=== PATIENT | female | born 1940 | race Hispanic/Latino ===

== ENCOUNTER 2017-12-06 10:35 | Emergency (ER) | payer MEDICARE ==
[2017-12-06 10:39] VITALS: TEMP 98.6; O2SAT 98
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
[2017-12-06 11:46] LABS: BASO # 0.1 K/uL (0.0-0.2); BASO % 0.9 % (0.0-2.0); EOS # 0.2 K/uL (0.0-0.7); EOS % 2.3 % (0.0-4.0); HEMOGLOBIN 13.7 g/dL (11.0-16.0); LYMPH # 1.5 K/uL (1.0-4.3); LYMPH % 20.9 % (20.0-40.0); MEAN CELL VOLUME 87.6 fL (81.0-99.0); MEAN CORPUSCULAR HEMOGLOBIN 29.9 pg (27.0-31.0); MEAN CORPUSCULAR HGB CONC 34.1 g/dL (33.0-37.0); MEAN PLATELET VOLUME 8.5 fL (7.2-11.7); MONO # 0.5 K/uL (0.0-0.8); MONO % 7.1 % (0.0-10.0); NEUT # 4.8 K/uL (1.8-7.0); NEUT % 68.8 % (50.0-75.0); RBC 4.6 Mil/uL (3.80-5.20); RED CELL DISTRIBUTION WIDTH 13.1 % (11.5-14.5)
[2017-12-06 11:57] LABS: PROTHROMBIN TIME 11.3 SECONDS (9.7-12.2)
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
[2017-12-06 12:11] LABS: ALB/GLOB RATIO 1.3 (1.0-2.1); ALBUMIN 3.9 g/dL (3.5-5.0); ALT/SGPT 18 U/L (9-52); AST/SGOT 40 U/L (14-36); BLOOD UREA NITROGEN 16 mg/dL (7-17); CALCIUM 9.2 mg/dl (8.6-10.4); GFR AFRICAN-AMERICAN > 60; GFR NON-AFRICAN AMERICAN > 60
[2017-12-06 12:16] LABS: CK-MB 1.09 ng/mL (0.0-3.38)
[2017-12-06 12:37] VITALS: BP 143/83; PULSE 74; RESP 18
== END 2017-12-06 12:53 | disposition home or self-care (01) ==
LOC: C.ER 10:35
DX: R20.2 Paresthesia of skin (principal); I10 Essential (primary) hypertension; E11.9 Type 2 diabetes mellitus without complications

== ENCOUNTER 2018-04-27 15:22 | Emergency (ER) | payer OTHER, MEDICARE ==
[2018-04-27 15:38] VITALS: BP 186/95; PULSE 88; RESP 16; TEMP 97.3; O2SAT 97
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
--- NOTE | 2018-04-28 12:45 | CARD ---
APPROVED REPORT Date of service: 04/27/2018 EKG Measurement Heart [id number] MI [id number] [id number] <Conclusion> Normal sinus rhythm Inferior infarct, age undetermined Possible Anterior infarct, age undetermined Abnormal ECG
== END 2018-04-27 16:50 | disposition home or self-care (01) ==
LOC: C.ER 15:22
DX: S20.219A Contusion of unspecified front wall of thorax, initial encounter (principal); V49.9XXA Car occupant (driver) (passenger) injured in unspecified traffic accident, initial encounter; E11.9 Type 2 diabetes mellitus without complications; I10 Essential (primary) hypertension

== ENCOUNTER 2018-09-21 21:28 | Emergency (ER) | payer MEDICARE, OTHER ==
--- NOTE | 2018-09-21 22:09 | C.PDOC ---
History Of Present Illness 78 year old female, whose past medical history includes hypertension and diabetes, presents to the ED for evaluation of elevated blood pressure and word- finding difficulty which she has been experiencing intermittently for the past w eeks. Patient states she stopped taking her Valsartan 160mg two weeks ago because she heard somewhere on the radio that it was bad. Patient reports she has not had any difficulty with finding words over the past 24 hours, and denies any word finding difficulty currently. Patient is concerned about her elevated blood pressure, which has prompted this visit. She denies fever, chills, headache, night swears, unilateral weakness, slurred speech, or recent falls/injuries. Time Seen by Provider: 09/21/18 22:09 Chief Complaint (Nursing): Medical Clearance History Per: Patient History/Exam Limitations: no limitations Onset/Duration Of Symptoms: Other (weeks ) Current Symptoms Are (Timing): Better Additional History Per: Patient Past Medical History Reviewed: Historical Data, Nursing Documentation, Vital Signs Vital Signs: Last Vital Signs Temp 97.6 F 09/21/18 21:47 Pulse 74 09/21/18 22:08 Resp 16 09/21/18 22:08 BP 210/94 H 09/21/18 22:08 Pulse Ox 97 09/21/18 22:08 - Medical History PMH: Anxiety, Diabetes, HTN Surgical History: - [facility] Procedures APPLICATION OF SPLINT (06/27/14) Family History: States: Unknown Family Hx - Social History Hx Alcohol Use: No Hx Substance Use: No - Immunization History Hx Tetanus Toxoid Vaccination: No Hx Influenza Vaccination: Yes Hx Pneumococcal Vaccination: No Review Of Systems Constitutional: Positive for: Other (elevated blood pressure ). Negative for: Fever, Chills, Sweats Eyes: Negative for: Pain ENT: Negative for: Ear Pain Cardiovascular: Negative for: Chest Pain Respiratory: Negative for: Cough, Shortness of Breath Gastrointestinal: Negative for: Nausea, Vomiting, Abdominal Pain, Diarrhea, Con stipation, Melena Genitourinary: Negative for: Dysuria, Vaginal Discharge, Vaginal Bleeding Musculoskeletal: Negative for: Neck Pain Neurological: Negative for: Weakness, Numbness, Incoordination, Change in Speech, Confusion, Seizures, Altered Mental Status, Headache Physical Exam - Physical Exam Appears: Well, Non-toxic, No Acute Distress Skin: Normal Color, Warm, Dry Head: Atraumatic, Normacephalic Eye(s): bilateral: Normal Inspection, PERRL, EOMI Ear(s): Bilateral: Normal Oral Mucosa: Moist Neck: Normal, Normal ROM, Supple, Other (no meningeal signs ) Chest: Symmetrical, No Deformity, No Tenderness Cardiovascular: Rhythm Regular, No Murmur Respiratory: Normal Breath Sounds, No Rales, No Rhonchi, No Wheezing Gastrointestinal/Abdominal: Normal Exam, Soft, No Tenderness, No Mass Back: Normal Inspection, No CVA Tenderness, No Vertebral Tenderness Extremity: Normal ROM, Capillary Refill (less than 2 seconds ) Extremity: Bilateral: Atraumatic Neurological/Psych: Oriented x3, Normal Speech, Normal Cognition, Normal Cranial Nerves, No Cerebellar Signs, Normal Motor, Normal Sensation, No Slow To Respond With Command, No Inappropriate Response To Command, No Expressive Aphasia, No Dysarthria Gait: Steady Other Neurological Findings: No Facial Palsy, No Tongue Deviation Extremity: Right: No Drift, Left: No Drift ED Course And Treatment - Laboratory Results Result Diagrams: 09/21/18 22:39 09/21/18 22:39 O2 Sat by Pulse Oximetry: 97 (on RA) Pulse Ox Interpretation: Normal Medical Decision Making Medical Decision Makin yr old female p/w difficulty word finding since she has stopped taking one of her BP medications. Likely elevated pressures causing stroke like symptoms. Given she is asymptomatic at this time and has been asymtompatic over the past 24 hours, no indication for code stroke. On exam, pt denies any difficulty with word finding and has a normal neuro exam. Per family bedside pt is currently at baseline and has been at baseline over the past 24 hours. Differential diagnoses include but are not limited to: hypertensive urgency Progress: Bloodwork and CT Head ordered and reviewed. Patient endorsed to take her own medication of Valsartan 160mg EK, nsr, no stemi 1233 5 of labetalol given BP 171/[address] unremarkable Pt remains asymptomatic NEuro exam remains unremarkable. endorsed to pt to continue taking her BP medications including her losartan (unless there is an allergic reaction) and to followup with PMD + NEuro she is agreeable to plan Disposition - Disposition Referrals: Alfredo Peña MD [Staff Provider] - Kwan Dick MD [Staff Provider] - [facility] [Outside] [facility] [Outside] [facility] [Outside] Disposition: HOME/ ROUTINE Disposition Time: 00:36 Condition: GOOD Additional Instructions: CONTINUE TAKING YOUR LOSARTAN DIRECTED UNLESS YOU HAVE AN ALLERGIC REACTION TO IT. SEE YOUR PRIMARY CARE DOCTOR AND A NEUROLOGIST SOON POSSIBLE Instructions: High Blood Pressure (DC) Forms: [facility] (Citizen Of [place]) - Clinical Impression Clinical Impression: Hypertensive urgency - Scribe Statement The provider has reviewed the documentation as recorded by the Scribe (Scarlett Harvey) Provider Attestation: All medical record entries made by the Scribe were at my direction and personally dictated by me. I have reviewed the chart and agree that the record accurately reflects my personal performance of the history, physical exam, medical decision making, and the department course for this patient. I have also personally directed, reviewed, and agree with the discharge instructions and disposition.
[2018-09-21] MEDS ORDERED: Patient's Own Medication - Tablet/Capusle PO ONE (22:25)
[2018-09-21 22:42] LABS: BASO % 0.7 % (0.0-2.0); EOS # 0.2 K/uL (0.0-0.7); EOS % 2.8 % (0.0-4.0); HEMOGLOBIN 13.9 g/dL (11.0-16.0); LYMPH # 1.4 K/uL (1.0-4.3); LYMPH % 19.6 % (20.0-40.0); MEAN CORPUSCULAR HEMOGLOBIN 29.4 pg (27.0-31.0); MEAN CORPUSCULAR HGB CONC 33.4 g/dL (33.0-37.0); MONO # 0.5 K/uL (0.0-0.8); MONO % 7.2 % (0.0-10.0); NEUT # 4.9 K/uL (1.8-7.0); NEUT % 69.7 % (50.0-75.0); RBC 4.72 Mil/uL (3.80-5.20); RED CELL DISTRIBUTION WIDTH 13.3 % (11.5-14.5)
[2018-09-21 22:49] LABS: INR 1.1; PROTHROMBIN TIME 11.7 SECONDS (9.7-12.2)
[2018-09-21 22:54] LABS: ALB/GLOB RATIO 1.6 (1.0-2.1); ALBUMIN 4.4 g/dL (3.5-5.0); BLOOD UREA NITROGEN 21 mg/dL (7-17); GFR NON-AFRICAN AMERICAN > 60
[2018-09-21 23:05] LABS: ALT/SGPT 23 U/L (9-52); AST/SGOT 39 U/L (14-36)
[2018-09-22] MEDS ORDERED: Labetalol 25mg/5ml Syringe IVP STA (00:23)
[2018-09-22 01:18] VITALS: BP 165/81; PULSE 70; RESP 16; TEMP 97.9
--- NOTE | 2018-09-22 09:21 | CARD ---
APPROVED REPORT Date of service: 09/21/2018 EKG Measurement Heart [id number] NH [id number] [id number] <Conclusion> Normal sinus rhythm Inferior infarct, age undetermined Abnormal ECG
--- NOTE | 2018-09-22 10:32 | CT ---
Date of service: 09/21/2018 PROCEDURE: CT HEAD WITHOUT CONTRAST. HISTORY: htn, ams earlier COMPARISON: Non contrast head CT 12/06/17 TECHNIQUE: Axial computed tomography images were obtained through the head/brain without intravenous contrast. Radiation dose: Total exam DLP = 1022.82 mGy-cm. This CT exam was performed using one or more of the following dose reduction techniques: Automated exposure control, adjustment of the mA and/or kV according to patient size, and/or use of iterative reconstruction technique. FINDINGS: HEMORRHAGE: No intracranial hemorrhage. BRAIN: Diffuse atrophy with prominence of the ventricles and sulci noted. No mass effect or edema. Intracranial atherosclerosis. Scattered periventricular and subcortical white matter hypodensities, which are nonspecific, but often seen with chronic microvascular ischemic disease. Small left ganglia lacunar type infarct. Please note that MRI with diffusion imaging is more sensitive in the detection of acute ischemic event. VENTRICLES: No hydrocephalus. CALVARIUM: Unremarkable. PARANASAL SINUSES: Unremarkable as visualized. No significant inflammatory changes. MASTOID AIR CELLS: Unremarkable as visualized. No inflammatory changes. OTHER FINDINGS: None. IMPRESSION: Nonspecific white matter changes. Generalized atrophy. Small left basal ganglia lacunar type infarct. Preliminary impression was provided by [place].
[2018-09-23 21:17] VITALS: O2SAT 97
== END 2018-09-22 01:18 | disposition home or self-care (01) ==
LOC: C.ER 21:28
DX: I10 Essential (primary) hypertension (principal); E11.9 Type 2 diabetes mellitus without complications; F41.9 Anxiety disorder, unspecified

== ENCOUNTER 2018-09-22 15:53 | Observation (INO) | payer MEDICARE, OTHER ==
--- NOTE | 2018-09-22 16:17 | C.PDOC ---
History Of Present Illness Patient sent from PMD's office for evaluation of possible TIA/CVA. As per daughter, patient was seen in the ED yesterday for similar complaints, was hypertensive and having difficulty finding words prior to ED arrival. Blood work and CT scan were done yesterday, and patient was discharged. Daughter states they her mother does not seem to be herself, and that since speaking to her last night she has seemed mildly confused and having some difficulty getting the correct words out. Daughter/patient deny visual changesm facial droop, slurred speech, extremity weakness, sensory changes, visual changes. PMHx: HTN, DM II, anxiety, TIA Time Seen by Provider: 09/22/18 16:02 Chief Complaint (Nursing): Medical Clearance History Per: Patient, Family (daughter at bedside ) History/Exam Limitations: clinical condition Onset/Duration Of Symptoms: Days (since last night ) Current Symptoms Are (Timing): Still Present Severity: Mild Past Medical History Reviewed: Historical Data, Nursing Documentation, Vital Signs Vital Signs: Last Vital Signs Temp 98 F 09/22/18 16:03 Pulse 88 09/22/18 16:03 Resp 16 09/22/18 16:03 BP 176/98 H 09/22/18 16:03 Pulse Ox 96 09/22/18 16:03 - Medical History PMH: Anxiety, Diabetes, HTN Surgical History: - [facility] Procedures APPLICATION OF SPLINT (06/27/14) Family History: States: No Known Family Hx - Social History Hx Alcohol Use: No Hx Substance Use: No - Immunization History Hx Tetanus Toxoid Vaccination: No Hx Influenza Vaccination: Yes Hx Pneumococcal Vaccination: No Review Of Systems Constitutional: Negative for: Fever, Chills Cardiovascular: Negative for: Chest Pain, Palpitations Respiratory: Negative for: Cough, Shortness of Breath Gastrointestinal: Negative for: Nausea, Vomiting, Abdominal Pain, Diarrhea Neurological: Positive for: Change in Speech (mild expressive aphasia), Confusion. Negative for: Weakness, Numbness, Incoordination, Seizures, Altered Mental Status, Headache, Dizziness Physical Exam - Physical Exam Appears: Well, Non-toxic, No Acute Distress Skin: Normal Color, Warm, Dry Head: Atraumatic, Normacephalic Eye(s): bilateral: Normal Inspection, PERRL, EOMI Oral Mucosa: Moist Cardiovascular: Rhythm Regular Respiratory: Normal Breath Sounds, No Rales, No Rhonchi, No Wheezing Gastrointestinal/Abdominal: Normal Exam, Bowel Sounds, Soft, No Tenderness Neurological/Psych: No Oriented x3 (AAOx2 - disoriented to time), Normal Speech, Normal Cognition, Normal Cranial Nerves, No Cerebellar Signs, Normal Motor, Normal Sensation, Expressive Aphasia (mild expressive aphasia), No Receptive Aphasia, No Dysarthria, No Romberg ED Course And Treatment - Laboratory Results Result Diagrams: 09/22/18 16:25 09/22/18 16:25 O2 Sat by Pulse Oximetry: 96 (ra) Pulse Ox Interpretation: Normal - CT Scan/US ct head (yesterday) Other Rad Studies (CT/US): Read By Radiologist, Radiology Report Reviewed CT/US Interpretation: Accession No. : [id number]. Patient Name / ID : TIA MARINA / [id number]. Exam Date : 09/21/2018 22:47:41 ( Approved ). Study Comment : Sex / Age : F / 78Y. Creator : Talisha Carrillo MD. Dictator : aTlisha Carrillo MD. Dormitory Maid : Jogger Operator : Talisha Carrillo MD. Approver2 : Report Date : 09/22/2018 10:28:54. My Comment : . Date of service: 09/21/2018. PROCEDURE: CT HEAD WITHOUT CONTRAST. HISTORY: htn, ams earlier. COMPARISON: Non contrast head CT 12/06/17. TECHNIQUE: Axial computed tomography images were obtained through the head/brain without intravenous contrast. Radiation dose: Total exam DLP = 1022.82 mGy-cm. This CT exam was performed using one or more of the following dose reduction techniques: Automated exposure control, adjustment of the mA and/or kV according to patient size, and/or use of iterative reconstruction technique. FINDINGS: HEMORRHAGE: No intracranial hemorrhage. BRAIN: Diffuse atrophy with prominence of the ventricles and sulci noted. No mass effect or edema. Intracranial atherosclerosis. Scattered periventricular and subcortical white matter hypodensities, which are nonspecific, but often seen with chronic microvascular ischemic disease. Small left ganglia lacunar type infarct. Please note that MRI with diffusion imaging is more sensitive in the detection of acute ischemic event. VENTRICLES: No hydrocephalus. CALVARIUM: Unremarkable. PARANASAL SINUSES: Unremarkable as visualized. No significant inflammatory changes. MASTOID AIR CELLS: Unremarkable as visualized. No inflammatory changes. OTHER FINDINGS: None. IMPRESSION: Nonspecific white matter changes. Generalized atrophy. Small left basal ganglia lacunar type infarct. Preliminary impression was provided by SVITLANA Boothe. Progress Note: Blood work, EKG, MRI brain ordered. 5:00pm- After extensive discussion, patient refuses MRI of brain, states she is too anxious and claustrophic. Patient offered Ativan however still refuses. 6:00pm- Discussed patient with manager inventory control neurology Dr. Dick, recommends PO Plavix 300mg and EEG - ordered. NIHSS Stroke Scale - Date/Time Evaluation Performed Date Performed: 09/22/18 Time Performed: 16:00 When Was NIHSS Performed: Baseline - How Severe is the Stroke Level of Consciousness: 0=Alert LOC to Questions: 0=Both comments correct LOC to commands: 0=Obeys both correctly Best Gaze: 0=Normal Visual: 0=No visual loss Facial: 0=Normal Motor Arm - Left: 0=No drift Motor Arm - Right: 0=No drift Motor Leg - Left: 0=No drift Motor Leg - Right: 0=No drift Limb Ataxia: 0=Absent Sensory: 0=Normal Best Language: 1=Mild to moderate aphasia Dysarthia: 0=Normal articulation Extinction & Inattention (Neglect): 0=Normal, no object Score: 1 rTPA Inclusion/Exclusion - Refusal of Treatment Patient Refused Treatment: No Disposition - Disposition
[2018-09-22 16:34] LABS: BASO # 0.1 K/uL (0.0-0.2); BASO % 0.8 % (0.0-2.0); EOS # 0.1 K/uL (0.0-0.7); EOS % 1.9 % (0.0-4.0); HEMOGLOBIN 13.8 g/dL (11.0-16.0); MEAN CELL VOLUME 88.1 fL (81.0-99.0); MEAN CORPUSCULAR HEMOGLOBIN 29.4 pg (27.0-31.0); MEAN CORPUSCULAR HGB CONC 33.4 g/dL (33.0-37.0); MEAN PLATELET VOLUME 8.4 fL (7.2-11.7); MONO # 0.7 K/uL (0.0-0.8); MONO % 8.8 % (0.0-10.0); NEUT # 4.6 K/uL (1.8-7.0); NEUT % 61.5 % (50.0-75.0); RBC 4.7 Mil/uL (3.80-5.20); RED CELL DISTRIBUTION WIDTH 12.8 % (11.5-14.5); WHITE BLOOD COUNT 7.5 K/uL (4.8-10.8)
[2018-09-22 16:43] LABS: INR 1.1; PROTHROMBIN TIME 12.2 SECONDS (9.7-12.2)
[2018-09-22 16:45] LABS: ALB/GLOB RATIO 1.6 (1.0-2.1); ALBUMIN 4.6 g/dL (3.5-5.0); ALT/SGPT 18 U/L (9-52); AST/SGOT 65 U/L (14-36); BLOOD UREA NITROGEN 16 mg/dL (7-17); CALCIUM 10.1 mg/dl (8.6-10.4); GFR NON-AFRICAN AMERICAN > 60
[2018-09-22 16:56] LABS: B-TYPE NATRIURETIC PEPTIDE 178 pg/mL (0-900); CK-MB 0.76 ng/mL (0.0-3.38)
[2018-09-22 20:48] LABS: HDL CHOLESTEROL 58 mg/dL (30-70)
[2018-09-22 20:59] LABS: LDL CHOLESTEROL 125 mg/dL (0-129)
[2018-09-22 21:51] LABS: FOLATE > 20.0 ng/mL
[2018-09-22 22:55] LABS: BLOOD UREA NITROGEN 15 mg/dL (7-17); CALCIUM 10.4 mg/dl (8.6-10.4); GFR NON-AFRICAN AMERICAN > 60
[2018-09-23 01:11] LABS: SQUAMOUS EPITHIAL 3 /hpf (0-5); URINE BACTERIA RARE (<OCC); URINE BILIRUBIN NEGATIVE (NEGATIVE); URINE BLOOD NEGATIVE (NEGATIVE); URINE CLARITY Hazy (Clear); URINE COLOR Yellow (YELLOW); URINE GLUCOSE (UA) NORMAL (Normal); URINE HYALINE CAST 0-2 /lpf (0-2); URINE LEUKOCYTE ESTERASE 1+ Leu/uL (Negative); URINE PROTEIN 1+ mg/dL (NEGATIVE); URINE UROBILINOGEN NORMAL mg/dL (0.2-1.0)
[2018-09-23] MEDS: Enoxaparin 40 mg Syringe SC SCH (10:54)
--- NOTE | 2018-09-23 11:20 | CP.PCM.CON ---
History of Present Illness - History of Present Illness History of Present Illness: PGY-1 Neuro Consult Note for Dr. Dick Patient is a 78 year old female with a PMHx diabetes mellitus 2, hypertension, anxiety admitted for AMS. She was seen in the [facility] ED on 09/21 for hypertensive urgency. She states that when she gets anxious, her throat will close up and she won't be able to speak. The sensation usually dissipates on it's own after the stressor goes away, however she remained aphasic through the night and came back to the ED for the same symptom. She regained her voice shortly after being admitted. She knows what she wants to say, but can't get the words out. Occasionally, she has trouble with word finding and recall. She does admit to not taking her medication as prescribed. She forgets about twice a week to take her medications. Her daughter at bedside also states that she has been less cautious than her usual self, forgetting that the lights or stove are turned on when leaving a room. Patient currently has no physical complaints. Denies headache, dizziness, n/v, blurry vision, tinnitus, weakness. PMH: HTN, DM2, anxiety, urinary incontinence Med: ASA 81mg po daily, Vascepa 2gm po BID, metformin 1000mg po BID, Valsartan 160mg po daily, Claritin 10mg po daily All: Codeine, morphine, Sulfa - angioedema SxHx: R nephrectomy, colon polyp removal, c/section FamHx: father - CAD, mother - colon CA SocHx: lives alone at home. 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 absent: Chills, Fever, Headache, Weakness - EENT Eyes: absent: Diplopia, Discharge, Itchy Eyes, Pain, Loss of Vision Ears: Dizziness. absent: Decreased Hearing, Tinnitus - Neurological Neurological: Confusion, Disequilibrium, Dizziness. absent: Abnormal Gait, Abnormal Hearing, Abnormal Movements, Abnormal Speech, Behavioral Changes, Burning Sensations, Convulsions, Numbness, Focal Weakness, Frequent Falls, Headaches, Restless Legs, Tingling, Tremor, Vertigo, Weakness Past Patient History - Past Social History Smoking Status: Never Smoked - CARDIAC Hx Cardiac Disorders: Yes Hx Hypertension: Yes - PULMONARY Hx Respiratory Disorders: No - NEUROLOGICAL Hx Neurological Disorder: Yes HX Cerebrovascular Accident: Yes (mini stroke 2 years ago) Hx Vertigo: Yes - HEENT Hx HEENT Problems: Yes Other/Comment: wears eyeglasses for reading - RENAL Hx Chronic Kidney Disease: No - ENDOCRINE/METABOLIC Hx Endocrine Disorders: Yes Hx Diabetes Mellitus Type 2: Yes - HEMATOLOGICAL/ONCOLOGICAL Hx Blood Disorders: No - INTEGUMENTARY Hx Dermatological Problems: No - MUSCULOSKELETAL/RHEUMATOLOGICAL Hx Musculoskeletal Disorders: No Hx Falls: No - GASTROINTESTINAL Hx Gastrointestinal Disorders: No - GENITOURINARY/GYNECOLOGICAL Hx Genitourinary Disorders: No - PSYCHIATRIC Hx Psychophysiologic Disorder: Yes Hx Anxiety: Yes - SURGICAL HISTORY Hx Surgeries: Yes Other/Comment: Rt. nephrectomy - ANESTHESIA Hx Anesthesia: Yes Hx Anesthesia Reactions: No Hx Malignant Hyperthermia: No Has any member of the family had a problem w/ anesthesia?: No Meds Allergies/Adverse Reactions: Allergies Allergy/AdvReac Type Severity Reaction Status Date / Time codeine Allergy RASH Verified 09/22/18 16:04 morphine Allergy RASH Verified 09/22/18 16:04 Sulfa (Sulfonamide Allergy RASH Verified 09/22/18 16:04 Antibiotics) - Medications Medications: Current Medications Aspirin (Aspirin Chewable) 81 mg PO DAILY [facility] Last Admin: 09/23/18 10:51 Dose: 81 mg Carvedilol (Coreg) 12.5 mg PO DAILY [facility] Last Admin: 09/23/18 10:51 Dose: 12.5 mg Enoxaparin Sodium (Lovenox) 40 mg SC DAILY [facility] Last Admin: 09/23/18 10:54 Dose: 40 mg Ceftriaxone Sodium 1 gm/ (Sodium Chloride) 100 mls @ 100 mls/hr IVPB DAILY [facility]; Protocol Last Admin: 09/23/18 10:54 Dose: 100 mls/hr Losartan Potassium (Cozaar) 100 mg PO DAILY [facility] Last Admin: 09/23/18 10:54 Dose: 100 mg Metformin HCl (Glucophage) 500 mg PO DAILY [facility] Last Admin: 09/23/18 10:51 Dose: 500 mg Physical Exam - Constitutional Appears: Non-toxic, No Acute Distress - Head Exam Head Exam: ATRAUMATIC, NORMOCEPHALIC - Eye Exam Eye Exam: EOMI, Normal appearance, PERRL Pupil Exam: NORMAL ACCOMODATION - ENT Exam ENT Exam: Mucous Membranes Moist - Neck Exam Neck exam: Positive for: Full Rom, Normal Inspection, Tenderness (paraspinal) - Respiratory Exam Respiratory Exam: Clear to Auscultation Bilateral, NORMAL BREATHING PATTERN. absent: Rales, Rhonchi, Wheezes - Cardiovascular Exam Cardiovascular Exam: REGULAR RHYTHM, +S1, +S2 - GI/Abdominal Exam GI & Abdominal Exam: Normal Bowel Sounds, Soft. absent: Tenderness Additional comments: morbidly obese - Extremities Exam Extremities exam: Negative for: calf tenderness, pedal edema - Back Exam Additional comments: kyphosis - Neurological Exam Neurological exam: Alert, CN II-XII Intact, Oriented x3 Additional comments: poor recall and attention on MME failed serial 7's - Expanded Neurological Exam Expanded Patient oriented to: person, place, time Speech: Expressive Aphasia, Fluid Speech Cranial nerves: EOM's Intact: Normal, Facial Sensation: Normal Cerebellar Function: Finger to Nose: Normal Upper motor neuron: Pronator Drift: Normal - Psychiatric Exam Psychiatric exam: Anxious, Normal Affect, Normal Mood - Skin Skin Exam: Dry, Normal Color, Warm Results - Vital Signs Recent Vital Signs: Last Vital Signs Temp 98.6 F 09/23/18 04:00 Pulse 85 09/23/18 04:00 Resp 14 09/23/18 04:00 BP 153/81 H 09/23/18 10:51 Pulse Ox 98 09/23/18 04:00 - Labs Result Diagrams: 09/22/18 16:25 09/22/18 22:41 Labs: Laboratory Results - last 24 hr 09/22/18 09/22/18 09/22/18 15:00 15:59 16:25 WBC 7.5 RBC 4.70 Hgb 13.8 Hct 41.4 MCV 88.1 MCH 29.4 MCHC 33.4 RDW 12.8 Plt Count 204 MPV 8.4 Neut % (Auto) 61.5 Lymph % (Auto) 27.0 Cavalier % (Auto) 8.8 Eos % (Auto) 1.9 Baso % (Auto) 0.8 Neut # (Auto) 4.6 Lymph # (Auto) 2.0 Cavalier # (Auto) 0.7 Eos # (Auto) 0.1 Baso # (Auto) 0.1 ESR PT INR APTT Sodium Potassium Chloride Carbon Dioxide Anion Gap BUN Creatinine Est GFR ( Amer) Est GFR (Non-Af Amer) POC Glucose (mg/dL) 129 H Random Glucose Hemoglobin A1c Calcium Total Bilirubin AST ALT Alkaline Phosphatase Ammonia 20 Total Creatine Kinase CK-MB (Mass) Troponin I NT-Pro-B Natriuret Pep Total Protein Albumin Globulin Albumin/Globulin Ratio Triglycerides Cholesterol LDL Cholesterol Direct HDL Cholesterol Vitamin B12 Folate Free T4 Total T3 TSH 3rd Generation Urine Color Urine Clarity Urine pH Ur Specific [place] Urine Protein Urine Glucose (UA) Urine Ketones Urine Blood Urine Nitrate Urine Bilirubin Urine Urobilinogen Ur Leukocyte Esterase Urine WBC (Auto) Urine RBC (Auto) Ur Squamous Epith Cells Urine Bacteria Hyaline Casts 09/22/18 09/22/18 09/22/18 16:25 16:25 20:21 WBC RBC Hgb Hct MCV MCH MCHC RDW Plt Count MPV Neut % (Auto) Lymph % (Auto) [place] % (Auto) Eos % (Auto) Baso % (Auto) Neut # (Auto) Lymph # (Auto) [place] # (Auto) Eos # (Auto) Baso # (Auto) ESR PT 12.2 INR 1.1 APTT 33 Sodium 132 Potassium 5.8 H 4.1 Chloride 102 Carbon Dioxide 27 Anion Gap 9 L BUN 16 Creatinine 0.8 Est GFR ( Amer) > 60 Est GFR (Non-Af Amer) > 60 POC Glucose (mg/dL) Random Glucose 124 H D Hemoglobin A1c Calcium 10.1 Total Bilirubin 1.5 H AST 65 H D ALT 18 Alkaline Phosphatase 75 Ammonia Total Creatine Kinase 84 CK-MB (Mass) 0.76 Troponin I 0.0150 NT-Pro-B Natriuret Pep 178 Total Protein 7.5 Albumin 4.6 Globulin 2.9 Albumin/Globulin Ratio 1.6 Triglycerides Cholesterol LDL Cholesterol Direct HDL Cholesterol Vitamin B12 Folate Free T4 Total T3 TSH 3rd Generation Urine Color Urine Clarity Urine pH Ur Specific [place] Urine Protein Urine Glucose (UA) Urine Ketones Urine Blood Urine Nitrate Urine Bilirubin Urine Urobilinogen Ur Leukocyte Esterase Urine WBC (Auto) Urine RBC (Auto) Ur Squamous Epith Cells Urine Bacteria Hyaline Casts 09/22/18 09/22/18 09/22/18 20:23 22:33 22:33 WBC RBC Hgb Hct MCV MCH MCHC RDW Plt Count MPV Neut % (Auto) Lymph % (Auto) [place] % (Auto) Eos % (Auto) Baso % (Auto) Neut # (Auto) Lymph # (Auto) [place] # (Auto) Eos # (Auto) Baso # (Auto) ESR 14 PT INR APTT Sodium Potassium Chloride Carbon Dioxide Anion Gap BUN Creatinine Est GFR ( Amer) Est GFR (Non-Af Amer) POC Glucose (mg/dL) Random Glucose Hemoglobin A1c 7.0 H Calcium Total Bilirubin AST ALT Alkaline Phosphatase Ammonia Total Creatine Kinase CK-MB (Mass) Troponin I NT-Pro-B Natriuret Pep Total Protein Albumin Globulin Albumin/Globulin Ratio Triglycerides 135 Cholesterol 202 H LDL Cholesterol Direct 125 HDL Cholesterol 58 Vitamin B12 470 Folate > 20.0 Free T4 Total T3 TSH 3rd Generation 0.40 L Urine Color Urine Clarity Urine pH Ur Specific [place] Urine Protein Urine Glucose (UA) Urine Ketones Urine Blood Urine Nitrate Urine Bilirubin Urine Urobilinogen Ur Leukocyte Esterase Urine WBC (Auto) Urine RBC (Auto) Ur Squamous Epith Cells Urine Bacteria Hyaline Casts 09/22/18 09/23/18 09/23/18 22:41 00:10 07:02 WBC RBC Hgb Hct MCV MCH MCHC RDW Plt Count MPV Neut % (Auto) Lymph % (Auto) [place] % (Auto) Eos % (Auto) Baso % (Auto) Neut # (Auto) Lymph # (Auto) [place] # (Auto) Eos # (Auto) Baso # (Auto) ESR PT INR APTT Sodium 135 Potassium 4.2 Chloride 103 Carbon Dioxide 23 Anion Gap 13 BUN 15 Creatinine 0.8 Est GFR ( Amer) > 60 Est GFR (Non-Af Amer) > 60 POC Glucose (mg/dL) Random Glucose 142 H Hemoglobin A1c Calcium 10.4 Total Bilirubin AST ALT Alkaline Phosphatase Ammonia Total Creatine Kinase CK-MB (Mass) Troponin I NT-Pro-B Natriuret Pep Total Protein Albumin Globulin Albumin/Globulin Ratio Triglycerides Cholesterol LDL Cholesterol Direct HDL Cholesterol Vitamin B12 Folate Free T4 1.39 Total T3 TSH 3rd Generation Urine Color Yellow Urine Clarity Hazy Urine pH 6.0 Ur Specific [place] 1.008 Urine Protein 1+ H Urine Glucose (UA) Normal Urine Ketones Trace Urine Blood Negative Urine Nitrate Negative Urine Bilirubin Negative Urine Urobilinogen Normal Ur Leukocyte Esterase 1+ H Urine WBC (Auto) 26 H Urine RBC (Auto) 3 Ur Squamous Epith Cells 3 Urine Bacteria Rare Hyaline Casts 0-2 09/23/18 07:02 WBC RBC Hgb Hct MCV MCH MCHC RDW Plt Count MPV Neut % (Auto) Lymph % (Auto) [place] % (Auto) Eos % (Auto) Baso % (Auto) Neut # (Auto) Lymph # (Auto) [place] # (Auto) Eos # (Auto) Baso # (Auto) ESR PT INR APTT Sodium Potassium Chloride Carbon Dioxide Anion Gap BUN Creatinine Est GFR ( Amer) Est GFR (Non-Af Amer) POC Glucose (mg/dL) Random Glucose Hemoglobin A1c Calcium Total Bilirubin AST ALT Alkaline Phosphatase Ammonia Total Creatine Kinase CK-MB (Mass) Troponin I NT-Pro-B Natriuret Pep Total Protein Albumin Globulin Albumin/Globulin Ratio Triglycerides Cholesterol LDL Cholesterol Direct HDL Cholesterol Vitamin B12 Folate Free T4 Total T3 1.55 TSH 3rd Generation Urine Color Urine Clarity Urine pH Ur Specific [place] Urine Protein Urine Glucose (UA) Urine Ketones Urine Blood Urine Nitrate Urine Bilirubin Urine Urobilinogen Ur Leukocyte Esterase Urine WBC (Auto) Urine RBC (Auto) Ur Squamous Epith Cells Urine Bacteria Hyaline Casts Assessment & Plan - Assessment and Plan (Free Text) Assessment: 78yo F PMH diabetes mellitus 2, hypertension, anxiety admitted for AMS. Plan: Aphasia Primary Progressive Aphasia vs. TIA CT Head without contrast (09/21): Nonspecific white matter changes. Generalized atrophy Small left basal ganglia lacunar infarct. Carotid Dopplers (09/22): prelim negative EEG (09/23): pending read - f/u MRI Brain without contrast - f/u MRA Head without contrast - f/u MRA Neck without contrast - Ativan 1mg IVP once prn on for claustrophobia prior to imaging - patient is neurologically stable - patient states that she is very wary of MRI/MRA. The importance was impressed upon her and she said she is willing to try while hospitalized. If she is unable to tolerate closed MRI, option for open MRI after discharge was explained. d/w Dr. Mayelin Kinsey PGY-1 - Date & Time Date: 09/23/18 Time: 12:30
--- NOTE | 2018-09-23 11:36 | US ---
HISTORY: R/O GB STONES COMPARISON: None available. TECHNIQUE: Sonographic evaluation of the abdomen. FINDINGS: LIVER: Measures 15.6 cm in sagittal dimension. Echogenic liver may be seen in setting of hepatic parenchymal disease or fatty infiltration. No focal hepatic mass identified. The main portal vein appears patent with normal directional flow. No intrahepatic bile duct dilatation. GALLBLADDER: No gallstones. No gallbladder wall thickening. Negative sonographic Miramontes's sign as assessed by the disability attorney. COMMON BILE DUCT: Measures 4 mm. PANCREAS: Not well visualized. RIGHT KIDNEY: Not visualized, by history surgically resected. LEFT KIDNEY: Measures 10.9 x 6.1 x 4.9cm. No obstructing calculus or hydronephrosis identified. 6.5 x 5.9 x 6.7 cm lower pole cyst. No obstructing calculus or hydronephrosis. SPLEEN: Measures approximately 10.6 cm. AORTA: Limited views appear unremarkable. IVC: Limited views appear unremarkable. OTHER FINDINGS: None. IMPRESSION: Echogenic liver may be seen in setting of hepatic parenchymal disease or fatty infiltration. 6.5 x 5.9 x 6.7 cm left lower pole renal cyst. The right kidney is not identified, by history surgically resected.
--- NOTE | 2018-09-23 12:07 | CP.PCM.HP ---
History of Present Illness - History of Present Illness History of Present Illness: Patient presented in ER with new mental status changes, confuse, she had problem to "found words". Patient for evaluation of CVA vs TIA. She presented with liver function test abnormality and possible UTI. Since she was started on iv antibx her mental status improving well. Present on Admission - Present on Admission Any Indicators Present on Admission: No Review of Systems - Constitutional Constitutional: Fatigue, Weakness - EENT Eyes: As Per HPI - Cardiovascular Cardiovascular: As Per HPI - Respiratory Respiratory: As Per HPI - Gastrointestinal Gastrointestinal: As Per HPI - Musculoskeletal Musculoskeletal: As Per HPI - Neurological Neurological: Confusion - Psychiatric Psychiatric: As Per HPI - Endocrine Endocrine: As Per HPI Past Patient History - Past Social History Smoking Status: Never Smoked - CARDIAC Hx Cardiac Disorders: Yes Hx Hypertension: Yes - PULMONARY Hx Respiratory Disorders: No - NEUROLOGICAL Hx Neurological Disorder: Yes HX Cerebrovascular Accident: Yes (mini stroke 2 years ago) Hx Vertigo: Yes - HEENT Hx HEENT Problems: Yes Other/Comment: wears eyeglasses for reading - RENAL Hx Chronic Kidney Disease: No - ENDOCRINE/METABOLIC Hx Endocrine Disorders: Yes Hx Diabetes Mellitus Type 2: Yes - HEMATOLOGICAL/ONCOLOGICAL Hx Blood Disorders: No - INTEGUMENTARY Hx Dermatological Problems: No - MUSCULOSKELETAL/RHEUMATOLOGICAL Hx Musculoskeletal Disorders: No Hx Falls: No - GASTROINTESTINAL Hx Gastrointestinal Disorders: No - GENITOURINARY/GYNECOLOGICAL Hx Genitourinary Disorders: No - PSYCHIATRIC Hx Psychophysiologic Disorder: Yes Hx Anxiety: Yes - SURGICAL HISTORY Hx Surgeries: Yes Other/Comment: Rt. nephrectomy - ANESTHESIA Hx Anesthesia: Yes Hx Anesthesia Reactions: No Hx Malignant Hyperthermia: No Has any member of the family had a problem w/ anesthesia?: No Meds Allergies/Adverse Reactions: Allergies Allergy/AdvReac Type Severity Reaction Status Date / Time codeine Allergy RASH Verified 09/22/18 16:04 morphine Allergy RASH Verified 09/22/18 16:04 Sulfa (Sulfonamide Allergy RASH Verified 09/22/18 16:04 Antibiotics) Physical Exam - Constitutional Appears: Non-toxic, Chronically Ill - Head Exam Head Exam: ATRAUMATIC, NORMAL INSPECTION, NORMOCEPHALIC - Eye Exam Eye Exam: Normal appearance - ENT Exam ENT Exam: Mucous Membranes Moist - Neck Exam Neck exam: Positive for: Normal Inspection - Respiratory Exam Respiratory Exam: Decreased Breath Sounds - Cardiovascular Exam Cardiovascular Exam: REGULAR RHYTHM, +S1, +S2 - GI/Abdominal Exam GI & Abdominal Exam: Normal Bowel Sounds - Extremities Exam Extremities exam: Positive for: normal inspection - Neurological Exam Neurological exam: Alert, CN II-XII Intact Additional comments: confuse. - Psychiatric Exam Psychiatric exam: Flat Affect - Skin Skin Exam: Pallor Results - Vital Signs Recent Vital Signs: Last Vital Signs Temp 98.6 F 09/23/18 04:00 Pulse 85 09/23/18 04:00 Resp 14 09/23/18 04:00 BP 153/81 H 09/23/18 10:51 Pulse Ox 98 09/23/18 04:00 - Labs Result Diagrams: 09/22/18 16:25 09/22/18 22:41 Labs: Laboratory Results - last 24 hr 09/22/18 09/22/18 09/22/18 15:00 15:59 16:25 WBC 7.5 RBC 4.70 Hgb 13.8 Hct 41.4 MCV 88.1 MCH 29.4 MCHC 33.4 RDW 12.8 Plt Count 204 MPV 8.4 Neut % (Auto) 61.5 Lymph % (Auto) 27.0 Dickey % (Auto) 8.8 Eos % (Auto) 1.9 Baso % (Auto) 0.8 Neut # (Auto) 4.6 Lymph # (Auto) 2.0 Dickey # (Auto) 0.7 Eos # (Auto) 0.1 Baso # (Auto) 0.1 ESR PT INR APTT Sodium Potassium Chloride Carbon Dioxide Anion Gap BUN Creatinine Est GFR ( Amer) Est GFR (Non-Af Amer) POC Glucose (mg/dL) 129 H Random Glucose Hemoglobin A1c Calcium Total Bilirubin AST ALT Alkaline Phosphatase Ammonia 20 Total Creatine Kinase CK-MB (Mass) Troponin I NT-Pro-B Natriuret Pep Total Protein Albumin Globulin Albumin/Globulin Ratio Triglycerides Cholesterol LDL Cholesterol Direct HDL Cholesterol Vitamin B12 Folate Free T4 Total T3 TSH 3rd Generation Urine Color Urine Clarity Urine pH Ur Specific Maria Stein Urine Protein Urine Glucose (UA) Urine Ketones Urine Blood Urine Nitrate Urine Bilirubin Urine Urobilinogen Ur Leukocyte Esterase Urine WBC (Auto) Urine RBC (Auto) Ur Squamous Epith Cells Urine Bacteria Hyaline Casts 09/22/18 09/22/18 09/22/18 16:25 16:25 20:21 WBC RBC Hgb Hct MCV MCH MCHC RDW Plt Count MPV Neut % (Auto) Lymph % (Auto) Dickey % (Auto) Eos % (Auto) Baso % (Auto) Neut # (Auto) Lymph # (Auto) Dickey # (Auto) Eos # (Auto) Baso # (Auto) ESR PT 12.2 INR 1.1 APTT 33 Sodium 132 Potassium 5.8 H 4.1 Chloride 102 Carbon Dioxide 27 Anion Gap 9 L BUN 16 Creatinine 0.8 Est GFR ( Amer) > 60 Est GFR (Non-Af Amer) > 60 POC Glucose (mg/dL) Random Glucose 124 H D Hemoglobin A1c Calcium 10.1 Total Bilirubin 1.5 H AST 65 H D ALT 18 Alkaline Phosphatase 75 Ammonia Total Creatine Kinase 84 CK-MB (Mass) 0.76 Troponin I 0.0150 NT-Pro-B Natriuret Pep 178 Total Protein 7.5 Albumin 4.6 Globulin 2.9 Albumin/Globulin Ratio 1.6 Triglycerides Cholesterol LDL Cholesterol Direct HDL Cholesterol Vitamin B12 Folate Free T4 Total T3 TSH 3rd Generation Urine Color Urine Clarity Urine pH Ur Specific Maria Stein Urine Protein Urine Glucose (UA) Urine Ketones Urine Blood Urine Nitrate Urine Bilirubin Urine Urobilinogen Ur Leukocyte Esterase Urine WBC (Auto) Urine RBC (Auto) Ur Squamous Epith Cells Urine Bacteria Hyaline Casts 09/22/18 09/22/18 09/22/18 20:23 22:33 22:33 WBC RBC Hgb Hct MCV MCH MCHC RDW Plt Count MPV Neut % (Auto) Lymph % (Auto) Dickey % (Auto) Eos % (Auto) Baso % (Auto) Neut # (Auto) Lymph # (Auto) Dickey # (Auto) Eos # (Auto) Baso # (Auto) ESR 14 PT INR APTT Sodium Potassium Chloride Carbon Dioxide Anion Gap BUN Creatinine Est GFR ( Amer) Est GFR (Non-Af Amer) POC Glucose (mg/dL) Random Glucose Hemoglobin A1c 7.0 H Calcium Total Bilirubin AST ALT Alkaline Phosphatase Ammonia Total Creatine Kinase CK-MB (Mass) Troponin I NT-Pro-B Natriuret Pep Total Protein Albumin Globulin Albumin/Globulin Ratio Triglycerides 135 Cholesterol 202 H LDL Cholesterol Direct 125 HDL Cholesterol 58 Vitamin B12 470 Folate > 20.0 Free T4 Total T3 TSH 3rd Generation 0.40 L Urine Color Urine Clarity Urine pH Ur Specific Maria Stein Urine Protein Urine Glucose (UA) Urine Ketones Urine Blood Urine Nitrate Urine Bilirubin Urine Urobilinogen Ur Leukocyte Esterase Urine WBC (Auto) Urine RBC (Auto) Ur Squamous Epith Cells Urine Bacteria Hyaline Casts 09/22/18 09/23/18 09/23/18 22:41 00:10 07:02 WBC RBC Hgb Hct MCV MCH MCHC RDW Plt Count MPV Neut % (Auto) Lymph % (Auto) Dickey % (Auto) Eos % (Auto) Baso % (Auto) Neut # (Auto) Lymph # (Auto) Dickey # (Auto) Eos # (Auto) Baso # (Auto) ESR PT INR APTT Sodium 135 Potassium 4.2 Chloride 103 Carbon Dioxide 23 Anion Gap 13 BUN 15 Creatinine 0.8 Est GFR ( Amer) > 60 Est GFR (Non-Af Amer) > 60 POC Glucose (mg/dL) Random Glucose 142 H Hemoglobin A1c Calcium 10.4 Total Bilirubin AST ALT Alkaline Phosphatase Ammonia Total Creatine Kinase CK-MB (Mass) Troponin I NT-Pro-B Natriuret Pep Total Protein Albumin Globulin Albumin/Globulin Ratio Triglycerides Cholesterol LDL Cholesterol Direct HDL Cholesterol Vitamin B12 Folate Free T4 1.39 Total T3 TSH 3rd Generation Urine Color Yellow Urine Clarity Hazy Urine pH 6.0 Ur Specific Maria Stein 1.008 Urine Protein 1+ H Urine Glucose (UA) Normal Urine Ketones Trace Urine Blood Negative Urine Nitrate Negative Urine Bilirubin Negative Urine Urobilinogen Normal Ur Leukocyte Esterase 1+ H Urine WBC (Auto) 26 H Urine RBC (Auto) 3 Ur Squamous Epith Cells 3 Urine Bacteria Rare Hyaline Casts 0-2 09/23/18 07:02 WBC RBC Hgb Hct MCV MCH MCHC RDW Plt Count MPV Neut % (Auto) Lymph % (Auto) Dickey % (Auto) Eos % (Auto) Baso % (Auto) Neut # (Auto) Lymph # (Auto) Dickey # (Auto) Eos # (Auto) Baso # (Auto) ESR PT INR APTT Sodium Potassium Chloride Carbon Dioxide Anion Gap BUN Creatinine Est GFR ( Amer) Est GFR (Non-Af Amer) POC Glucose (mg/dL) Random Glucose Hemoglobin A1c Calcium Total Bilirubin AST ALT Alkaline Phosphatase Ammonia Total Creatine Kinase CK-MB (Mass) Troponin I NT-Pro-B Natriuret Pep Total Protein Albumin Globulin Albumin/Globulin Ratio Triglycerides Cholesterol LDL Cholesterol Direct HDL Cholesterol Vitamin B12 Folate Free T4 Total T3 1.55 TSH 3rd Generation Urine Color Urine Clarity Urine pH Ur Specific Maria Stein Urine Protein Urine Glucose (UA) Urine Ketones Urine Blood Urine Nitrate Urine Bilirubin Urine Urobilinogen Ur Leukocyte Esterase Urine WBC (Auto) Urine RBC (Auto) Ur Squamous Epith Cells Urine Bacteria Hyaline Casts Assessment & Plan (1) TIA (transient ischemic attack) Status: Suspected (2) CVA (cerebral vascular accident) Status: Suspected (3) UTI (urinary tract infection) Status: Acute (4) UTI (urinary tract infection) Status: Acute (5) Delirium due to another medical condition Status: Acute (6) Fatty liver Status: Acute - Assessment and Plan (Free Text) Plan: Continue present rx.
--- NOTE | 2018-09-23 13:15 | RAD ---
Date of service: 09/22/2018 HISTORY: Delirium COMPARISON: Comparison made prior study 04/27/2018. TECHNIQUE: 1 view obtained. FINDINGS: LUNGS: The the minor left basilar atelectasis scarring PLEURA: No significant pleural effusion identified, no pneumothorax apparent. CARDIOVASCULAR: Aorta ectatic uncoiled. No aortic atherosclerotic calcification. Heart appears mildly enlarged. Questionable hvac controls technician device overlying the left inferolateral cardiac silhouette. OSSEOUS STRUCTURES: No significant abnormalities. VISUALIZED UPPER ABDOMEN: Normal. OTHER FINDINGS: None. IMPRESSION: Minor left basilar atelectasis and or scarring. .
--- NOTE | 2018-09-23 13:45 | VASCLAB ---
Date of service: 09/23/2018 PROCEDURE: Carotid Duplex Exam. HISTORY: TIA COMPARISON: None available. TECHNIQUE: Grayscale and duplex Doppler evaluation of the cervical carotid and vertebral arteries were performed. The common carotid, carotid bifurcations and cervical Internal Carotid Artery (ICA) and proximal External Carotid Artery (ECA) were evaluated. The vertebral arteries were evaluated for gross patency and flow direction. Report prepared by Jadon Cutler, BS, RVT FINDINGS: RIGHT CAROTID ARTERIES: 1. Common Carotid Artery: No significant focal plaque formation of the right common carotid artery. Maximum Peak Systolic velocity: 69 cm/sec: End-diastolic velocity 14 cm/sec. 2. Carotid Bifurcation: plaque formation. Maximum Peak Systolic velocity: 37 cm/sec: End-diastolic velocity 8 cm/sec. 3. Internal Carotid Artery: Plaque description: 3.1. Proximal Segment: Peak systolic velocity 39 cm/sec: End-diastolic velocity 10 cm/sec - % stenosis 0-15% 3.2. Middle Segment: Peak systolic velocity 80 cm/sec: End-diastolic velocity 21 cm/sec - % stenosis 0-15% 3.3. Distal Segment: Peak systolic velocity 43 cm/sec: End-diastolic velocity 14 cm/sec - % stenosis 0-15% 4. External Carotid Artery: No significant focal plaque formation. Peak systolic velocity 81 cm/sec 5. ICA/CCA Ratio: 1.6 LEFT CAROTID ARTERIES: 1. Common Carotid Artery: No significant focal plaque formation of the left common carotid artery. Maximum Peak Systolic velocity: 65 cm/sec: End-diastolic velocity 13 cm/sec. 2. Carotid Bifurcation: plaque formation. Maximum Peak Systolic velocity: 47 cm/sec: End-diastolic velocity 11 cm/sec. 3. Internal Carotid Artery: Plaque description: 3.1. Proximal Segment: Peak systolic velocity 45 cm/sec: End-diastolic velocity 13 cm/sec - % stenosis 0-15% 3.2. Middle Segment: Peak systolic velocity 41 cm/sec: End-diastolic velocity 14 cm/sec - % stenosis 0-15% 3.3. Distal Segment: Peak systolic velocity 57 cm/sec: End-diastolic velocity 21 cm/sec - % stenosis 0-15% 4. External Carotid Artery: No significant focal plaque formation. Peak systolic velocity 56 cm/sec 5. ICA/CCA Ratio: 1.0 VERTEBRAL ARTERIES: 1. Right Vertebral Artery: The right vertebral artery flow direction is antegrade. 2. Left Vertebral Artery: The left vertebral artery flow direction is antegrade. OTHER FINDINGS: 1. Right Brachial Blood pressure: 164 mmHg. 2. Left Brachial Blood pressure: 172 mmHg. 3. No atherosclerotic calcification present IMPRESSION: RIGHT: Duplex scan does not suggest hemodynamically significant stenosis of the right extracranial carotid arteries. LEFT: Duplex scan does not suggest hemodynamically significant stenosis of the left extracranial carotid arteries.
[2018-09-23 15:50] LABS: HEPATITIS B SURFACE AG Negative (NEGATIVE)
[2018-09-23 15:56] LABS: HEPATITIS A IGM NEGATIVE (NEGATIVE); HEPATITIS B CORE AB NEGATIVE (NEGATIVE)
[2018-09-23] MEDS ORDERED: Dextrose 50% SYRINGE Inj (50 ml) IV PRN (16:02)
[2018-09-23] MEDS ORDERED: Glucagon Recombinant 1 mg Inj IM PRN (16:02)
[2018-09-23 16:08] LABS: HEPATITIS C ANTIBODY NEGATIVE (NEGATIVE)
[2018-09-23] MEDS: (Novolin R) Insulin Human Regular 100 units/ml vial SC SCH ×2 (17:53→21:12)
[2018-09-24 06:44] LABS: BASO % 0.6 % (0.0-2.0); EOS # 0.1 K/uL (0.0-0.7); HEMOGLOBIN 14.4 g/dL (11.0-16.0); LYMPH # 1.3 K/uL (1.0-4.3); LYMPH % 19.1 % (20.0-40.0); MEAN CELL VOLUME 89.2 fL (81.0-99.0); MEAN CORPUSCULAR HEMOGLOBIN 30.2 pg (27.0-31.0); MEAN CORPUSCULAR HGB CONC 33.9 g/dL (33.0-37.0); MONO # 0.4 K/uL (0.0-0.8); MONO % 6.2 % (0.0-10.0); NEUT # 4.7 K/uL (1.8-7.0); NEUT % 72.1 % (50.0-75.0); RBC 4.76 Mil/uL (3.80-5.20); RED CELL DISTRIBUTION WIDTH 13.2 % (11.5-14.5); WHITE BLOOD COUNT 6.6 K/uL (4.8-10.8)
[2018-09-24 06:58] LABS: BLOOD UREA NITROGEN 20 mg/dL (7-17); CALCIUM 9.8 mg/dl (8.6-10.4); GFR NON-AFRICAN AMERICAN > 60
[2018-09-24] MEDS: (Novolin R) Insulin Human Regular 100 units/ml vial SC SCH ×4 (08:39→22:00)
[2018-09-24] MEDS: Enoxaparin 40 mg Syringe SC SCH (10:19)
--- NOTE | 2018-09-24 11:19 | CP.PCM.PN ---
Subjective - Date & Time of Evaluation Date of Evaluation: 09/24/18 Time of Evaluation: 10:30 - Subjective Subjective: PGY-1 Neurology Progress Note for Dr. Dick Patient was seen and evaluated today OOB in chair in no acute distress with daughter at bedside. Nurse reports no overnight events. Patient has no new complaints. She has been able to speak without difficulty. She only experiences anxiety when providers bring up the MRI. She has filled out the clearance paperwork for the MRI, but has not gone down for the imaging due to scheduling, but more so due to the anxiety. Denies headache, blurry vision, loss of vision, loss of hearing, slurred speech, weakness, numbness, tingling. She was observed walking with PT comfortably with walker assistance. Daughter does note more forgetfulness in the afternoon than in the mornings. Objective - Vital Signs/Intake and Output Vital Signs (last 24 hours): Temp Pulse Resp BP Pulse Ox 98 F 77 18 142/82 96 09/24/18 00:00 09/24/18 04:00 09/24/18 04:00 09/24/18 10:20 09/24/18 00:00 Intake and Output: 09/24/18 09/24/18 06:59 18:59 Intake Total 200 Output Total 300 Balance -100 - Medications Medications: Current Medications Aspirin (Aspirin Chewable) 81 mg PO DAILY [facility] Last Admin: 09/24/18 10:20 Dose: 81 mg Carvedilol (Coreg) 12.5 mg PO DAILY [facility] Last Admin: 09/24/18 10:20 Dose: 12.5 mg Dextrose (Dextrose 50% Inj) 0 ml IV STAT PRN; Protocol PRN Reason: Hypoglycemia Protocol Dextrose (Glutose 15) 0 gm PO ONCE PRN; Protocol PRN Reason: Hypoglycemia Protocol Enoxaparin Sodium (Lovenox) 40 mg SC DAILY [facility] Last Admin: 09/24/18 10:19 Dose: 40 mg Glucagon (Glucagen Diagnostic Kit) 0 mg IM STAT PRN; Protocol PRN Reason: Hypoglycemia Protocol Ceftriaxone Sodium 1 gm/ (Sodium Chloride) 100 mls @ 100 mls/hr IVPB DAILY [facility]; Protocol Last Admin: 09/24/18 10:19 Dose: 100 mls/hr Dextrose (Dextrose 5% In Water 1000 Ml) 1,000 mls @ 0 mls/hr IV .Q0M PRN; Protocol PRN Reason: Hypoglycemia Protocol Insulin Human Regular (Novolin R) 0 unit SC ACHS [facility]; Protocol Last Admin: 09/24/18 08:39 Dose: 1 unit Lorazepam (Ativan) 1 mg IVP ONCE PRN PRN Reason: Anxiety Losartan Potassium (Cozaar) 100 mg PO DAILY [facility] Last Admin: 09/24/18 10:19 Dose: 100 mg Metformin HCl (Glucophage) 500 mg PO DAILY [facility] Last Admin: 09/24/18 10:20 Dose: 500 mg - Labs Labs: 09/24/18 06:41 09/24/18 06:41 PT 12.2 SECONDS (9.7-12.2) 09/22/18 16:25 INR 1.1 09/22/18 16:25 APTT 33 SECONDS (21-34) 09/22/18 16:25 - Constitutional Appears: Non-toxic, No Acute Distress - Head Exam Head Exam: ATRAUMATIC, NORMOCEPHALIC - Eye Exam Eye Exam: EOMI, Normal appearance, PERRL Pupil Exam: NORMAL ACCOMODATION - ENT Exam ENT Exam: Mucous Membranes Moist - Neck Exam Neck Exam: Full ROM, Normal Inspection, Tenderness (L paraspinal) - Respiratory Exam Respiratory Exam: Clear to Ausculation Bilateral, NORMAL BREATHING PATTERN - Cardiovascular Exam Cardiovascular Exam: REGULAR RHYTHM, +S1, +S2 - GI/Abdominal Exam GI & Abdominal Exam: Soft, Normal Bowel Sounds. absent: Tenderness Additional comments: morbidly obese - Back Exam Additional comments: kyphosis - Neurological Exam Neurological Exam: Abnormal Gait (requires walker assistance), Alert, Awake, CN II-XII Intact, Oriented x3 Additional comments: poor recall and attention on MME difficulty word finding - Psychiatric Exam Psychiatric exam: Normal Affect, Normal Mood - Skin Skin Exam: Dry, Intact, Normal Color, Warm Assessment and Plan - Assessment and Plan (Free Text) Assessment: 78yo F PMH HTN, DM2, anxiety admitted for AMS. Plan: Aphasia Primary Progressive Aphasia vs. TIA CT Head without contrast (09/21): Nonspecific white matter changes. Generalized atrophy Small left basal ganglia lacunar infarct. Carotid Dopplers (09/22): negative EEG (09/23): pending read - f/u MRI Brain without contrast - f/u MRA Head without contrast - f/u MRA Neck without contrast - Ativan 1mg IVP once prn on for claustrophobia prior to imaging - patient is neurologically stable - patient remains wary of MRI/MRA. It was reinforced that the imaging would elucidate her processes, and she voices understanding but remains anxious. It was reiterated that she would still require an open MRI as an outpatient if she was unable to tolerate the procedure while admitted. d/w Dr. Mayelin Kinsey PGY-1
--- NOTE | 2018-09-24 21:22 | CARD ---
APPROVED REPORT Date of service: 09/22/2018 EKG Measurement Heart [id number] <Conclusion> Normal sinus rhythm Inferior infarct, age undetermined Anterolateral infarct, age undetermined Abnormal ECG
--- NOTE | 2018-09-24 22:19 | CP.PCM.PN ---
Subjective - Date & Time of Evaluation Date of Evaluation: 09/24/18 Time of Evaluation: 13:15 - Subjective Subjective: Patient mental status improving. For SNF level of care in am. Case discussed with patient and family. Status 2 days OBS 3rd day SNF. Objective - Vital Signs/Intake and Output Vital Signs (last 24 hours): Temp Pulse Resp BP Pulse Ox 98.2 F 75 16 136/61 96 09/24/18 20:00 09/24/18 18:00 09/24/18 16:00 09/24/18 16:00 09/24/18 16:00 Intake and Output: 09/24/18 09/24/18 11:59 23:59 Intake Total 200 220 Output Total 300 Balance -100 220 - Medications Medications: Current Medications Aspirin (Aspirin Chewable) 81 mg PO DAILY [facility] Last Admin: 09/24/18 10:20 Dose: 81 mg Carvedilol (Coreg) 12.5 mg PO DAILY [facility] Last Admin: 09/24/18 10:20 Dose: 12.5 mg Dextrose (Dextrose 50% Inj) 0 ml IV STAT PRN; Protocol PRN Reason: Hypoglycemia Protocol Dextrose (Glutose 15) 0 gm PO ONCE PRN; Protocol PRN Reason: Hypoglycemia Protocol Enoxaparin Sodium (Lovenox) 40 mg SC DAILY [facility] Last Admin: 09/24/18 10:19 Dose: 40 mg Glucagon (Glucagen Diagnostic Kit) 0 mg IM STAT PRN; Protocol PRN Reason: Hypoglycemia Protocol Ceftriaxone Sodium 1 gm/ (Sodium Chloride) 100 mls @ 100 mls/hr IVPB DAILY [facility]; Protocol Last Admin: 09/24/18 10:19 Dose: 100 mls/hr Dextrose (Dextrose 5% In Water 1000 Ml) 1,000 mls @ 0 mls/hr IV .Q0M PRN; Protocol PRN Reason: Hypoglycemia Protocol Insulin Human Regular (Novolin R) 0 unit SC ACHS [facility]; Protocol Last Admin: 09/24/18 22:00 Dose: Not Given Lorazepam (Ativan) 1 mg IVP ONCE PRN PRN Reason: Anxiety Losartan Potassium (Cozaar) 100 mg PO DAILY [facility] Last Admin: 09/24/18 10:19 Dose: 100 mg Metformin HCl (Glucophage) 500 mg PO DAILY [facility] Last Admin: 09/24/18 10:20 Dose: 500 mg - Labs Labs: 09/24/18 06:41 09/24/18 06:41 PT 12.2 SECONDS (9.7-12.2) 09/22/18 16:25 INR 1.1 09/22/18 16:25 APTT 33 SECONDS (21-34) 09/22/18 16:25 - Constitutional Appears: Non-toxic - Head Exam Head Exam: ATRAUMATIC, NORMAL INSPECTION, NORMOCEPHALIC - Eye Exam Eye Exam: Normal appearance - ENT Exam ENT Exam: Mucous Membranes Moist - Neck Exam Neck Exam: Full ROM - Cardiovascular Exam Cardiovascular Exam: REGULAR RHYTHM, +S1, +S2 - GI/Abdominal Exam GI & Abdominal Exam: Normal Bowel Sounds - Extremities Exam Extremities Exam: Full ROM - Neurological Exam Neurological Exam: Alert, Awake, CN II-XII Intact, Oriented x3 - Psychiatric Exam Psychiatric exam: Normal Mood Assessment and Plan (1) TIA (transient ischemic attack) Status: Suspected (2) CVA (cerebral vascular accident) Status: Suspected (3) UTI (urinary tract infection) Status: Acute (4) UTI (urinary tract infection) Status: Acute (5) Delirium due to another medical condition Status: Acute (6) Fatty liver Status: Acute - Assessment and Plan (Free Text) Plan: as above
[2018-09-25 07:47] LABS: BASO % 0.7 % (0.0-2.0); EOS # 0.1 K/uL (0.0-0.7); EOS % 2.2 % (0.0-4.0); HEMOGLOBIN 14.3 g/dL (11.0-16.0); LYMPH # 1.5 K/uL (1.0-4.3); LYMPH % 24.4 % (20.0-40.0); MEAN CELL VOLUME 88.4 fL (81.0-99.0); MEAN CORPUSCULAR HEMOGLOBIN 30.2 pg (27.0-31.0); MEAN CORPUSCULAR HGB CONC 34.1 g/dL (33.0-37.0); MEAN PLATELET VOLUME 8.4 fL (7.2-11.7); MONO # 0.5 K/uL (0.0-0.8); MONO % 8.2 % (0.0-10.0); NEUT # 3.9 K/uL (1.8-7.0); NEUT % 64.5 % (50.0-75.0); NRBC % 0.1 % (0.0-2.0); RBC 4.75 Mil/uL (3.80-5.20); WHITE BLOOD COUNT 6.1 K/uL (4.8-10.8)
[2018-09-25 08:06] LABS: ALB/GLOB RATIO 1.5 (1.0-2.1); ALBUMIN 4.2 g/dL (3.5-5.0); ALT/SGPT 23 U/L (9-52); AST/SGOT 35 U/L (14-36); BILIRUBIN,DIRECT 0.2 mg/dL (0.0-0.4); BLOOD UREA NITROGEN 17 mg/dL (7-17); CALCIUM 9.8 mg/dl (8.6-10.4); GFR NON-AFRICAN AMERICAN > 60
[2018-09-25] MEDS: (Novolin R) Insulin Human Regular 100 units/ml vial SC SCH ×2 (08:30→12:30)
[2018-09-25 08:32] VITALS: RESP 20; TEMP 97.9; O2SAT 97
[2018-09-25] MEDS: Enoxaparin 40 mg Syringe SC SCH (10:00)
[2018-09-25 10:01] VITALS: BP 159/84
[2018-09-25 10:03] VITALS: PULSE 84
--- NOTE | 2018-09-25 18:26 | CP.PCM.DIS ---
Provider - Provider Date of Admission: 09/22/18 17:21 Attending physician: Alfredo Peña MD Consults: 09/22/18 17:22 Physician Consult ONCE Comment: AMS, TIA Consulting Provider: Kwan iDck Consulting Physician: Kwan Dick Reason for Consult: neurology 09/23/18 08:00 Social Work Referral Routine Comment: score - 8 Physician Instructions: Reason For Exam: score - 8 09/23/18 16:19 Nursing Referral for Wound Care Routine Comment: Physician Instructions: Reason For Exam: routine Time Spent in preparation of Discharge (in minutes): 30 Diagnosis - Discharge Diagnosis (1) TIA (transient ischemic attack) Status: Suspected (2) CVA (cerebral vascular accident) Status: Suspected (3) UTI (urinary tract infection) Status: Acute (4) UTI (urinary tract infection) Status: Acute (5) Delirium due to another medical condition Status: Acute (6) Fatty liver Status: Acute Hospital Course - Lab Results Lab Results: Micro Results 09/23/18 05:42 Nose MRSA Culture (Admit) - Final MRSA NOT DETECTED 09/23/18 00:41 Urine Random Urine Culture - Final No Growth (<1,000 CFU/ML) Most Recent Lab Values WBC 6.1 K/uL (4.8-10.8) 09/25/18 07:44 RBC 4.75 Mil/uL (3.80-5.20) 09/25/18 07:44 Hgb 14.3 g/dL (11.0-16.0) 09/25/18 07:44 Hct 42.0 % (34.0-47.0) 09/25/18 07:44 MCV 88.4 fL (81.0-99.0) 09/25/18 07:44 MCH 30.2 pg (27.0-31.0) 09/25/18 07:44 MCHC 34.1 g/dL (33.0-37.0) 09/25/18 07:44 RDW 13.0 % (11.5-14.5) 09/25/18 07:44 Plt Count 206 K/uL (130-400) 09/25/18 07:44 MPV 8.4 fL (7.2-11.7) 09/25/18 07:44 Neut % (Auto) 64.5 % (50.0-75.0) 09/25/18 07:44 Lymph % (Auto) 24.4 % (20.0-40.0) 09/25/18 07:44 [place] % (Auto) 8.2 % (0.0-10.0) 09/25/18 07:44 Eos % (Auto) 2.2 % (0.0-4.0) 09/25/18 07:44 Baso % (Auto) 0.7 % (0.0-2.0) 09/25/18 07:44 Neut # (Auto) 3.9 K/uL (1.8-7.0) 09/25/18 07:44 Lymph # (Auto) 1.5 K/uL (1.0-4.3) 09/25/18 07:44 [place] # (Auto) 0.5 K/uL (0.0-0.8) 09/25/18 07:44 Eos # (Auto) 0.1 K/uL (0.0-0.7) 09/25/18 07:44 Baso # (Auto) 0.0 K/uL (0.0-0.2) 09/25/18 07:44 ESR 14 mm/hr (0-20) 09/22/18 22:33 PT 12.2 SECONDS (9.7-12.2) 09/22/18 16:25 INR 1.1 09/22/18 16:25 APTT 33 SECONDS (21-34) 09/22/18 16:25 Sodium 137 mmol/L (132-148) 09/25/18 07:38 Potassium 4.2 mmol/L (3.6-5.2) 09/25/18 07:38 Chloride 102 mmol/L (98-107) 09/25/18 07:38 Carbon Dioxide 25 mmol/L (22-30) 09/25/18 07:38 Anion Gap 13 (10-20) 09/25/18 07:38 BUN 17 mg/dL (7-17) 09/25/18 07:38 Creatinine 0.9 mg/dL (0.7-1.2) 09/25/18 07:38 Est GFR ( Amer) > 60 09/25/18 07:38 Est GFR (Non-Af Amer) > 60 09/25/18 07:38 POC Glucose (mg/dL) 192 mg/dL (65-110) H 09/25/18 11:19 Random Glucose 125 mg/dL (65-105) H 09/25/18 07:38 Hemoglobin A1c 7.0 % (4.2-6.5) H 09/22/18 22:33 Calcium 9.8 mg/dl (8.6-10.4) 09/25/18 07:38 Total Bilirubin 0.8 mg/dL (0.2-1.3) 09/25/18 07:38 Direct Bilirubin 0.2 mg/dL (0.0-0.4) 09/25/18 07:38 AST 35 U/L (14-36) 09/25/18 07:38 ALT 23 U/L (9-52) 09/25/18 07:38 Alkaline Phosphatase 89 U/L (38-126) 09/25/18 07:38 Ammonia 20 umol/L (9-33) 09/22/18 15:00 Total Creatine Kinase 84 U/L (30-135) 09/22/18 16:25 CK-MB (Mass) 0.76 ng/mL (0.0-3.38) 09/22/18 16:25 Troponin I 0.0150 ng/mL (0.00-0.120) 09/22/18 16:25 NT-Pro-B Natriuret Pep 178 pg/mL (0-900) 09/22/18 16:25 Total Protein 7.0 g/dL (6.3-8.3) 09/25/18 07:38 Albumin 4.2 g/dL (3.5-5.0) 09/25/18 07:38 Globulin 2.8 gm/dL (2.2-3.9) 09/25/18 07:38 Albumin/Globulin Ratio 1.5 (1.0-2.1) 09/25/18 07:38 Triglycerides 135 mg/dL (0-149) 09/22/18 20:23 Cholesterol 202 mg/dL (0-199) H 09/22/18 20:23 LDL Cholesterol Direct 125 mg/dL (0-129) 09/22/18 20:23 HDL Cholesterol 58 mg/dL (30-70) 09/22/18 20:23 Vitamin B12 470 pg/mL (239-931) 09/22/18 20:23 Folate > 20.0 ng/mL 09/22/18 20:23 Free T4 1.39 ng/dL (0.78-2.19) 09/23/18 07:02 Total T3 1.55 nmol/L (1.49-2.60) 09/23/18 07:02 TSH 3rd Generation 0.40 mIU/L (0.46-4.68) L 09/22/18 20:23 Urine Color Yellow (YELLOW) 09/23/18 00:10 Urine Clarity Hazy (Clear) 09/23/18 00:10 Urine pH 6.0 (5.0-8.0) 09/23/18 00:10 Ur Specific [place] 1.008 (1.003-1.030) 09/23/18 00:10 Urine Protein 1+ mg/dL (NEGATIVE) H 09/23/18 00:10 Urine Glucose (UA) Normal mg/dL (Normal) 09/23/18 00:10 Urine Ketones Trace mg/dL (NEGATIVE) 09/23/18 00:10 Urine Blood Negative (NEGATIVE) 09/23/18 00:10 Urine Nitrate Negative (NEGATIVE) 09/23/18 00:10 Urine Bilirubin Negative (NEGATIVE) 09/23/18 00:10 Urine Urobilinogen Normal mg/dL (0.2-1.0) 09/23/18 00:10 Ur Leukocyte Esterase 1+ [place]/uL (Negative) H 09/23/18 00:10 Urine WBC (Auto) 26 /hpf (0-5) H 09/23/18 00:10 Urine RBC (Auto) 3 /hpf (0-3) 09/23/18 00:10 Ur Squamous Epith Cells 3 /hpf (0-5) 09/23/18 00:10 Urine Bacteria Rare (<OCC) 09/23/18 00:10 Hyaline Casts 0-2 /lpf (0-2) 09/23/18 00:10 NELLY Screen Negative (Negative) 09/22/18 22:33 RPR Nonreactive (NONREACTIVE) 09/22/18 22:33 Hepatitis A IgM Ab Negative (NEGATIVE) 09/23/18 15:00 Hep Bs Antigen Negative (NEGATIVE) 09/23/18 15:00 Hep B Core IgM Ab Negative (NEGATIVE) 09/23/18 15:00 Hepatitis C Antibody Negative (NEGATIVE) 09/23/18 15:00 - Hospital Course Hospital Course: Patient presented in ER with new mental status changes, confuse, she had problem to "found words". Patient for evaluation of CVA vs TIA. She presented with liver function test abnormality and possible UTI. Since she was started on iv antibx her mental status improving well. At present comfortable. F/U in SNF Discharge Exam - Head Exam Head Exam: ATRAUMATIC, NORMAL INSPECTION, NORMOCEPHALIC - Eye Exam Eye Exam: Normal appearance - ENT Exam ENT Exam: Normal Exam - Neck Exam Neck exam: Full Rom - Respiratory Exam Respiratory Exam: Clear to PA & Lateral - Cardiovascular Exam Cardiovascular Exam: REGULAR RHYTHM, +S1, +S2 - GI/Abdominal Exam GI & Abdominal Exam: Normal Bowel Sounds - Extremities Exam Extremities exam: normal inspection - Neurological Exam Neurological exam: Alert, CN II-XII Intact, Normal Gait, Oriented x3 - Psychiatric Exam Psychiatric exam: Normal Mood - Skin Skin Exam: Normal Color Discharge Plan - Follow Up Plan Condition: GOOD Disposition: HOME/ ROUTINE Instructions: Transient Ischemic Attack (DC), Lowering the Risk of Having Another Stroke, Urinary Tract Infection in Women (DC) Additional Instructions: Discharge to Subacute Rehab Facility. Call Dr. Peña for admitting orders. Referrals: Kwan Dick MD [Staff Provider] - Alfredo Peña MD [Staff Provider] -
== END 2018-09-25 14:55 | disposition home or self-care (01) ==
LOC: C.ER 15:53 → C.9E 17:21 → C.9I 22:56 → C.5S 09-24 22:32
PROVIDERS: ADMIT Internal Medicine; ATTEND Internal Medicine
DX: I63.9 Cerebral infarction, unspecified (principal); K76.0 Fatty (change of) liver, not elsewhere classified; N39.0 Urinary tract infection, site not specified; R47.01 Aphasia; Z80.0 Family history of malignant neoplasm of digestive organs; Z82.49 Family history of ischemic heart disease and other diseases of the circulatory system; E11.9 Type 2 diabetes mellitus without complications; F05 Delirium due to known physiological condition; F41.9 Anxiety disorder, unspecified; I10 Essential (primary) hypertension; Z86.73 Personal history of transient ischemic attack (TIA), and cerebral infarction without residual deficits
CPT/HCPCS: 36415; 71045; 76700; 80048; 80053; 80061; 80074; 80076; 81001; 82140; 82550; 82553; 82607; 82746; 82948; 83036; 83520; 83880; 84132; 84439; 84443; 84480; 84484; 85025; 85610; 85651; 85730; 86039; 86592; 87081; 87086; 93005; 93880; 95812; 97110; 97116; 97162; 97166; 97530; 99285; G0378; G8978; G8979; G8987; G8988; J0696; J1650; J2060